=== PATIENT | male | born 1985 | race Caucasian/White ===

== ENCOUNTER 2018-01-20 12:44 | Emergency (ER) | payer MEDICAID ==
[~2018-01-20] VITALS: Ht 175.3 cm; Wt 65.0 kg
[2018-01-20 12:56] VITALS: BP 113/72
== END 2018-01-20 13:23 | disposition home or self-care (01) ==
LOC: EMS 12:45
DX: F10.11 Alcohol abuse, in remission (principal); F17.210 Nicotine dependence, cigarettes, uncomplicated
CPT/HCPCS: 99283; 99406

== ENCOUNTER 2018-01-24 18:58 | Emergency (ER) | payer MEDICAID ==
[~2018-01-24] VITALS: Ht 175.3 cm; Wt 65.0 kg
[2018-01-24] MEDS ORDERED: GABA-531 PO (19:16)
[2018-01-24 22:24] VITALS: BP 110/68
== END 2018-01-24 22:29 | disposition home or self-care (01) ==
LOC: EMS 18:58
DX: F10.239 Alcohol dependence with withdrawal, unspecified (principal); F17.210 Nicotine dependence, cigarettes, uncomplicated; Y90.0 Blood alcohol level of less than 20 mg/100 ml
CPT/HCPCS: 36415; 99283; G0480